=== PATIENT | male | born 1945 | race Hispanic/Latino ===

== ENCOUNTER 2017-04-21 02:03 | Emergency (ER) | payer MEDICARE ==
[2017-04-21] MEDS ORDERED: ONDANSETRON HCL 4 MG/2 ML VIAL ONE (02:16)
[2017-04-21 02:31] LABS: BASOPHILS % (AUTO) 0.9 % (0.0-5.0); HEMATOCRIT 35.4 % (42-54); LYMPHOCYTES % (AUTO) 9.7 % (21.0-51.0); MEAN CORPUSCULAR HEMOGLOBIN 26.4 pg (27.0-33.0); MEAN CORPUSCULAR HGB CONC 33.4 g/dL (32.0-36.0); MONOCYTES % (AUTO) 6.7 % (3.0-13.0); NEUTROPHILS % (AUTO) 79.7 % (40.0-77.0); PLATELET COUNT (AUTO) 240 K/uL (130-400); RED BLOOD CELL COUNT(AUTO) 4.48 MIL/uL (4.50-6.20); RED CELL DISTRIBUTION WIDTH 25.1 % (11.0-15.5)
[2017-04-21 02:55] LABS: CREATININE 0.8 mg/dL (0.5-1.5); POTASSIUM 3.2 mmol/L (3.5-5.1)
[2017-04-21 03:00] LABS: BILIRUBIN,TOTAL 0.3 mg/dL (0.2-1.0); TOTAL PROTEIN, SERUM 7.1 g/dL (6.0-8.3)
[2017-04-21 03:55] LABS: APPEARANCE,URINE Clear (CLEAR); BILIRUBIN,URINE Negative (NEGATIVE); COLOR,URINE Yellow (YELLOW); GLUCOSE, URINE (UA) >=1000 mg/dL (NEGATIVE); KETONES,URINE Trace mg/dL (NEGATIVE); LEUKOCYTE ESTERASE ,URINE Moderate (NEGATIVE); NITRATE,URINE Negative (NEGATIVE); OCCULT BLOOD,URINE Trace (NEGATIVE); PROTEIN,URINE Trace (NEGATIVE)
[2017-04-21 04:13] LABS: BACTERIA,URINE None Seen /HPF (None Seen); MUCUS,URINE Rare LPF (None Seen); RBC,URINE 0-1 /HPF (0-1); SQUAMOUS EPITHELIAL CELL,UR Few /LPF (0-2); YEAST,URINE BUDDING Few /HPF (None Seen)
[2017-04-21] MEDS ORDERED: CEFTRIAXONE SODIUM 1 GM ONE (05:01)
== END 2017-04-21 06:02 | disposition home or self-care (01) ==
LOC: EDH 02:03
DX: N39.0 Urinary tract infection, site not specified (principal); R11.2 Nausea with vomiting, unspecified; E11.65 Type 2 diabetes mellitus with hyperglycemia; Z86.73 Personal history of transient ischemic attack (TIA), and cerebral infarction without residual deficits
CPT/HCPCS: 36415; 80053; 81001; 83690; 84484 ×2; 85025; 93005; 96361; 96374; 96375; 99285; J0696; J2405

== ENCOUNTER 2017-06-09 10:35 | Inpatient (IN) | payer MEDICARE ==
[~2017-06-09] VITALS: Ht 175.3 cm; Wt 79.3 kg
[2017-06-09 11:06] LABS: BASOPHILS % (AUTO) 0.2 % (0.0-5.0); EOSINOPHILS % (AUTO) 0.2 % (0.0-8.0); HEMATOCRIT 38.1 % (42-54); MEAN CORPUSCULAR HEMOGLOBIN 27.2 pg (27.0-33.0); MEAN CORPUSCULAR VOLUME 79.9 fL (79-99); MONOCYTES % (AUTO) 3.2 % (3.0-13.0); NEUTROPHILS % (AUTO) 94.4 % (40.0-77.0); NUCLEATED RED BLOOD CELLS 0.1 % (0.0-0.19); PLATELET COUNT (AUTO) 387 K/uL (130-400); RED BLOOD CELL COUNT(AUTO) 4.77 MIL/uL (4.50-6.20); RED CELL DISTRIBUTION WIDTH 14.2 % (11.0-15.5); WHITE BLOOD COUNT (AUTO) 13.1 K/uL (4.8-10.8)
[2017-06-09 11:08] LABS: APPEARANCE,URINE Cloudy (CLEAR); BILIRUBIN,URINE Negative (NEGATIVE); COLOR,URINE Yellow (YELLOW); GLUCOSE, URINE (UA) >=1000 mg/dL (NEGATIVE); KETONES,URINE Negative (NEGATIVE); LEUKOCYTE ESTERASE ,URINE Moderate (NEGATIVE); NITRATE,URINE Positive (NEGATIVE); OCCULT BLOOD,URINE Small (NEGATIVE); PROTEIN,URINE Trace (NEGATIVE)
[2017-06-09] MEDS ORDERED: ACETAMINOPHEN 325 MG TAB ONE ×2 (11:11→15:30)
[2017-06-09] MEDS ORDERED: SODIUM CHLORIDE 0.9% 1000ML 1,000 ML IV ONE (11:11)
[2017-06-09 11:38] LABS: BACTERIA,URINE Many /HPF (None Seen); RBC,URINE 0-1 /HPF (0-1); SQUAMOUS EPITHELIAL CELL,UR Rare /LPF (0-2); WBC,URINE 51-100 /HPF (0-1)
[2017-06-09 11:46] LABS: POTASSIUM 4.5 mmol/L (3.5-5.1)
[2017-06-09 11:51] LABS: ALBUMIN 2.5 g/dL (3.5-5.0); BILIRUBIN,TOTAL 0.5 mg/dL (0.2-1.0); TOTAL PROTEIN, SERUM 8.2 g/dL (6.0-8.3)
[2017-06-09] MEDS ORDERED: CEFTRIAXONE SODIUM 1 GM ONE (12:57)
[2017-06-09] MEDS ORDERED: MEROPENEM 1 GM VIAL ONE (15:30)
[2017-06-09] MEDS ORDERED: INSULIN HUMULIN R 100 UNIT/ML 3ML ONE (17:36)
[2017-06-09] MEDS ORDERED: MEROPENEM 1 GM VIAL IVP SCH (18:00)
[2017-06-09] MEDS ORDERED: SODIUM CHLORIDE 0.9% 10 ML VIAL IVP PRN (18:00)
[2017-06-09 20:00] VITALS: BP_SYST 83; BP_SYST 93; BP_DIAS 43
[2017-06-09] MEDS: SODIUM CHLORIDE 0.9% 1000ML 1,000 ML IV SCH ×2 (20:00→22:35)
[2017-06-09] MEDS: INSULIN R PO SS1 SQ SCH (21:00)
[2017-06-09 21:25] VITALS: BP 96/49
[2017-06-09] MEDS: ACETAMINOPHEN 325 MG TAB PO PRN (22:34)
[2017-06-10] VITALS (8 sets, daily range): BP systolic 90–134; BP diastolic 51–97
[2017-06-10] MEDS: MEROPENEM 1 GM VIAL IVP SCH ×4 (01:20→23:44)
[2017-06-10] MEDS: ACETAMINOPHEN 325 MG TAB PO PRN (02:56)
[2017-06-10] MEDS ORDERED: ONDANSETRON HCL 4 MG/2 ML VIAL IVP PRN (03:30)
[2017-06-10 05:35] LABS: HEMATOCRIT 34.4 % (42-54); MEAN CORPUSCULAR HEMOGLOBIN 26.6 pg (27.0-33.0); MEAN CORPUSCULAR HGB CONC 33.1 g/dL (32.0-36.0); MEAN CORPUSCULAR VOLUME 80.6 fL (79-99); PLATELET COUNT (AUTO) 307 K/uL (130-400); RED BLOOD CELL COUNT(AUTO) 4.27 MIL/uL (4.50-6.20); RED CELL DISTRIBUTION WIDTH 14.7 % (11.0-15.5); WHITE BLOOD COUNT (AUTO) 21.3 K/uL (4.8-10.8)
[2017-06-10 05:42] LABS: CREATININE 1.2 mg/dL (0.5-1.5); POTASSIUM 4.1 mmol/L (3.5-5.1)
[2017-06-10] MEDS: INSULIN R PO SS1 SQ SCH ×4 (07:02→21:09)
[2017-06-10] MEDS: SODIUM CHLORIDE 0.9% 1000ML 1,000 ML IV SCH (16:48)
[2017-06-11 03:35] VITALS: BP 127/64
[2017-06-11 05:36] LABS: BASOPHILS % (AUTO) 0.6 % (0.0-5.0); EOSINOPHILS % (AUTO) 1.3 % (0.0-8.0); HEMATOCRIT 31.5 % (42-54); LYMPHOCYTES % (AUTO) 8.1 % (21.0-51.0); MEAN CORPUSCULAR HEMOGLOBIN 27.6 pg (27.0-33.0); MEAN CORPUSCULAR HGB CONC 34.4 g/dL (32.0-36.0); MEAN CORPUSCULAR VOLUME 80.1 fL (79-99); PLATELET COUNT (AUTO) 250 K/uL (130-400); RED BLOOD CELL COUNT(AUTO) 3.94 MIL/uL (4.50-6.20); RED CELL DISTRIBUTION WIDTH 14.3 % (11.0-15.5); WHITE BLOOD COUNT (AUTO) 11.3 K/uL (4.8-10.8)
[2017-06-11 05:51] LABS: CREATININE 0.9 mg/dL (0.5-1.5); POTASSIUM 3.6 mmol/L (3.5-5.1)
[2017-06-11] MEDS: INSULIN R PO SS1 SQ SCH ×4 (06:56→21:18)
[2017-06-11 08:02] VITALS: BP 120/60
[2017-06-11] MEDS: MEROPENEM 1 GM VIAL IVP SCH ×2 (10:17→17:54)
[2017-06-11] MEDS: SODIUM CHLORIDE 0.9% 1000ML 1,000 ML IV SCH ×2 (10:18→11:38)
[2017-06-11 11:53] VITALS: BP 120/60
[2017-06-11 15:41] VITALS: BP 142/65
[2017-06-11 19:10] VITALS: BP 144/59
[2017-06-12] VITALS (7 sets, daily range): BP systolic 121–141; BP diastolic 56–76
[2017-06-12] MEDS: MEROPENEM 1 GM VIAL IVP SCH ×3 (00:06→16:54)
[2017-06-12] MEDS: INSULIN R PO SS1 SQ SCH ×4 (06:41→22:37)
[2017-06-12] MEDS: SODIUM CHLORIDE 0.9% 1000ML 1,000 ML IV SCH ×2 (08:00→17:42)
[2017-06-12] MEDS: CADEXOMER IODINE 40 GM GEL TP SCH (09:48)
[2017-06-12] MEDS: ZINC OXIDE OINT 60GM TUBE TP SCH (09:48)
[2017-06-12] MEDS: SULFAMETHOX-TMP DS 800/160 TAB PO SCH (22:12)
[2017-06-13] MEDS: MEROPENEM 1 GM VIAL IVP SCH ×3 (02:01→16:56)
[2017-06-13 03:05] VITALS: BP 129/60
[2017-06-13] MEDS: INSULIN R PO SS1 SQ SCH ×4 (06:53→21:58)
[2017-06-13 07:00] VITALS: BP 132/62
[2017-06-13] MEDS: ZINC OXIDE OINT 60GM TUBE TP SCH (08:56)
[2017-06-13] MEDS: SULFAMETHOX-TMP DS 800/160 TAB PO SCH ×2 (08:56→21:54)
[2017-06-13] MEDS: CADEXOMER IODINE 40 GM GEL TP SCH (08:56)
[2017-06-13] MEDS: SODIUM CHLORIDE 0.9% 1000ML 1,000 ML IV SCH (08:58)
[2017-06-13 11:00] VITALS: BP 140/68
[2017-06-13 16:00] VITALS: BP 112/51
[2017-06-13] MEDS ORDERED: INSLAN SQ (16:06)
[2017-06-13] MEDS ORDERED: SULF1TAB42 PO (18:41)
[2017-06-13 20:00] VITALS: BP 128/62
== END 2017-06-13 21:50 | DRG 872 ==
LOC: EDH 10:35 → EDHIP 13:00 → 4CH 20:43
PROVIDERS: ADMIT Family Medicine; ATTEND Family Medicine
DX: A41.9 Sepsis, unspecified organism (principal); E44.0 Moderate protein-calorie malnutrition; E11.51 Type 2 diabetes mellitus with diabetic peripheral angiopathy without gangrene; I69.354 Hemiplegia and hemiparesis following cerebral infarction affecting left non-dominant side; N39.0 Urinary tract infection, site not specified; E78.5 Hyperlipidemia, unspecified; I10 Essential (primary) hypertension; Z60.2 Problems related to living alone; Z99.3 Dependence on wheelchair; Z79.4 Long term (current) use of insulin
CPT/HCPCS: 36415; 71045; 80048; 80053; 81001; 82948; 83605; 85025; 85027; 87040; 87088; 87186; 87804; A4218; J0696; J1815; J2185; J7030

== ENCOUNTER 2018-02-07 11:07 | Inpatient (IN) | payer MEDICARE ==
[~2018-02-07] VITALS: Ht 170.2 cm; Wt 94.3 kg
[~2018-02-07 11:07] MED LIST: INSLAN SQ; SULF1TAB42 PO
[2018-02-07] MEDS ORDERED: SODIUM CHLORIDE 0.9% 1000ML 1,000 ML IV ONE (11:28)
[2018-02-07] MEDS ORDERED: ONDANSETRON HCL 4 MG/2 ML VIAL ONE (11:28)
[2018-02-07 11:40] LABS: BASOPHILS % (AUTO) 0.8 % (0.0-5.0); EOSINOPHILS % (AUTO) 2.9 % (0.0-8.0); HEMATOCRIT 33.8 % (42-54); LYMPHOCYTES % (AUTO) 17.2 % (21.0-51.0); MEAN CORPUSCULAR HEMOGLOBIN 24.1 pg (27.0-33.0); MEAN CORPUSCULAR HGB CONC 31.9 g/dL (32.0-36.0); MEAN CORPUSCULAR VOLUME 75.5 fL (79-99); MONOCYTES % (AUTO) 6.5 % (3.0-13.0); NEUTROPHILS % (AUTO) 72.6 % (40.0-77.0); PLATELET COUNT (AUTO) 264 K/uL (130-400); RED BLOOD CELL COUNT(AUTO) 4.47 MIL/uL (4.50-6.20); RED CELL DISTRIBUTION WIDTH 16.2 % (11.0-15.5); WHITE BLOOD COUNT (AUTO) 8.4 K/uL (4.8-10.8)
[2018-02-07 12:00] LABS: INR 0.93 (0.85-1.15); PARTIAL THROMBOPLASTIN TIME 29.5 SEC (26.3-35.5); PROTHROMBIN TIME 9.8 SEC (9.6-11.6)
[2018-02-07 13:04] LABS: CREATININE 0.8 mg/dL (0.5-1.5)
[2018-02-07 13:08] LABS: BILIRUBIN,DIRECT 0.1 mg/dL (0.0-0.3); BILIRUBIN,TOTAL 0.2 mg/dL (0.2-1.0); TOTAL PROTEIN, SERUM 7.7 g/dL (6.0-8.3)
[2018-02-07 15:23] LABS: BASOPHILS % (AUTO) 0.5 % (0.0-5.0); EOSINOPHILS % (AUTO) 0.8 % (0.0-8.0); HEMATOCRIT 28.1 % (42-54); LYMPHOCYTES % (AUTO) 12.9 % (21.0-51.0); MEAN CORPUSCULAR HEMOGLOBIN 24.3 pg (27.0-33.0); MEAN CORPUSCULAR HGB CONC 31.9 g/dL (32.0-36.0); MEAN CORPUSCULAR VOLUME 76.3 fL (79-99); MONOCYTES % (AUTO) 4.2 % (3.0-13.0); NEUTROPHILS % (AUTO) 81.6 % (40.0-77.0); PLATELET COUNT (AUTO) 218 K/uL (130-400); RED BLOOD CELL COUNT(AUTO) 3.69 MIL/uL (4.50-6.20); RED CELL DISTRIBUTION WIDTH 16.6 % (11.0-15.5); WHITE BLOOD COUNT (AUTO) 7.2 K/uL (4.8-10.8)
[2018-02-07 18:17] LABS: HEMATOCRIT 32.7 % (42-54)
[2018-02-07 19:20] VITALS: BP 142/60
[2018-02-07] MEDS ORDERED: GLUCAGON 1MG KIT 1 MG ML IM PRN (20:00)
[2018-02-07] MEDS ORDERED: DEXTROSE 50%-WATER 50 ML DISP.SYRIN IV PRN (20:00)
[2018-02-07] MEDS: SODIUM CHLORIDE 0.9% 1000ML 1,000 ML IV SCH (21:13)
[2018-02-07] MEDS: PANTOPRAZOLE 40 MG/VIAL IVP SCH (21:13)
[2018-02-07] MEDS: INSULIN HUMULIN R 100 UNIT/ML 3ML SQ SCH (21:40)
[2018-02-08] VITALS (17 sets, daily range): BP systolic 109–152; BP diastolic 46–88
[2018-02-08 04:48] LABS: HEMATOCRIT 30.6 % (42-54); MEAN CORPUSCULAR HEMOGLOBIN 24.5 pg (27.0-33.0); MEAN CORPUSCULAR HGB CONC 32.2 g/dL (32.0-36.0); PLATELET COUNT (AUTO) 294 K/uL (130-400); RED BLOOD CELL COUNT(AUTO) 4.03 MIL/uL (4.50-6.20); RED CELL DISTRIBUTION WIDTH 16.6 % (11.0-15.5)
[2018-02-08 05:08] LABS: CREATININE 0.9 mg/dL (0.5-1.5); POTASSIUM 4.1 mmol/L (3.5-5.1)
[2018-02-08] MEDS: SODIUM CHLORIDE 0.9% 1000ML 1,000 ML IV SCH ×2 (06:00→16:00)
[2018-02-08] MEDS: INSULIN HUMULIN R 100 UNIT/ML 3ML SQ SCH ×4 (07:00→21:00)
[2018-02-08] MEDS ORDERED: LIDOCAINE HCL 1% 20 ML VIAL ONE (07:42)
[2018-02-08] MEDS ORDERED: PROPOFOL 10 MG/ML 20ML VIAL IV ONE ×2 (07:42→08:14)
[2018-02-08] MEDS ORDERED: EPINEPHRINE 1 MG/ML AMPULE ONE (08:08)
[2018-02-08] MEDS ORDERED: PHENYLEPHRINE HCL 10 MG/ML 1ML VIAL IV ONE (08:21)
[2018-02-08] MEDS: PANTOPRAZOLE 40 MG/VIAL IVP SCH ×2 (10:28→20:59)
[2018-02-08 16:25] LABS: HEMATOCRIT 30.8 % (42-54)
[2018-02-08] MEDS ORDERED: ACET-2900 PO (19:41)
[2018-02-08] MEDS ORDERED: [UNRECOGNIZED DRUG - OTHER] TP (19:41)
[2018-02-08] MEDS ORDERED: LACT10SO9 PO (19:41)
[2018-02-08] MEDS ORDERED: LACTULOSE 20 GM/30 ML UDCUP PO PRN (19:45)
[2018-02-08] MEDS ORDERED: ACETAMINOPHEN EXTENDED RELEASE 650 MG TABLET PO PRN (19:45)
[2018-02-09] MEDS: SODIUM CHLORIDE 0.9% 1000ML 1,000 ML IV SCH (02:00)
[2018-02-09 03:50] VITALS: BP 101/39
[2018-02-09] MEDS: INSULIN HUMULIN R 100 UNIT/ML 3ML SQ SCH ×3 (06:23→17:23)
[2018-02-09 07:57] VITALS: BP 107/70
[2018-02-09] MEDS ORDERED: [UNRECOGNIZED DRUG - OTHER] TP SCH (09:00)
[2018-02-09] MEDS: PANTOPRAZOLE 40 MG/VIAL IVP SCH (09:00)
[2018-02-09 11:31] VITALS: BP 112/72
[2018-02-09 16:00] VITALS: BP 122/74
== END 2018-02-09 17:58 | DRG 393 ==
LOC: EDH 11:07 → EDHIP 15:35 → 4BH 18:25
PROVIDERS: ADMIT Family Medicine; ATTEND Family Medicine
PROC: 0DB68ZZ Excision of Stomach, Via Natural or Artificial Opening Endoscopic (ICD-10-PCS; principal; 2018-02-08)
PROC: 3E0G8GC Introduction of Other Therapeutic Substance into Upper GI, Via Natural or Artificial Opening Endoscopic (ICD-10-PCS; 2018-02-08)
PROC: 0W3P8ZZ Control Bleeding in Gastrointestinal Tract, Via Natural or Artificial Opening Endoscopic (ICD-10-PCS; 2018-02-08)
PROC: 0DB68ZX Excision of Stomach, Via Natural or Artificial Opening Endoscopic, Diagnostic (ICD-10-PCS; 2018-02-08)
DX: K31.7 Polyp of stomach and duodenum (principal); K25.4 Chronic or unspecified gastric ulcer with hemorrhage; I69.354 Hemiplegia and hemiparesis following cerebral infarction affecting left non-dominant side; I10 Essential (primary) hypertension; E78.5 Hyperlipidemia, unspecified; E11.51 Type 2 diabetes mellitus with diabetic peripheral angiopathy without gangrene; N28.9 Disorder of kidney and ureter, unspecified; E11.621 Type 2 diabetes mellitus with foot ulcer; L97.509 Non-pressure chronic ulcer of other part of unspecified foot with unspecified severity; K44.9 Diaphragmatic hernia without obstruction or gangrene
CPT/HCPCS: 36415; 43235; 43239; 80048; 80076; 82270; 82550; 82948; 83690; 84484; 85014; 85018; 85025; 85027; 85610; 85730; 86850; 86900; 86901; 88305; 93005; C9113; J0171; J1815; J2370; J2405; J2704; J7030

== ENCOUNTER 2018-07-30 11:46 | Inpatient (IN) | payer MEDICARE ==
[~2018-07-30] VITALS: Ht 172.7 cm; Wt 95.8 kg
[~2018-07-30 11:46] MED LIST changes: +ACET-2900 PO; -INSLAN SQ; +LACT10SO9 PO; -SULF1TAB42 PO; +[UNRECOGNIZED DRUG - OTHER] TP
[2018-07-30 13:31] LABS: BASOPHILS % (AUTO) 0.6 % (0.0-5.0); EOSINOPHILS % (AUTO) 3.3 % (0.0-8.0); HEMATOCRIT 34.4 % (42-54); LYMPHOCYTES % (AUTO) 13.8 % (21.0-51.0); MEAN CORPUSCULAR HEMOGLOBIN 24.9 pg (27.0-33.0); MEAN CORPUSCULAR HGB CONC 32.6 g/dL (32.0-36.0); MEAN CORPUSCULAR VOLUME 76.4 fL (79-99); MONOCYTES % (AUTO) 8.7 % (3.0-13.0); NEUTROPHILS % (AUTO) 73.6 % (40.0-77.0); PLATELET COUNT (AUTO) 311 K/uL (130-400); WHITE BLOOD COUNT (AUTO) 8.8 K/uL (4.8-10.8)
[2018-07-30 13:36] LABS: POTASSIUM 3.8 mmol/L (3.5-5.1)
[2018-07-30 13:40] LABS: ALBUMIN 2.8 g/dL (3.5-5.0); BILIRUBIN,TOTAL 0.5 mg/dL (0.2-1.0); TOTAL PROTEIN, SERUM 8.1 g/dL (6.0-8.3)
[2018-07-30 13:44] LABS: INR 0.95 (0.85-1.15); PARTIAL THROMBOPLASTIN TIME 34.4 SEC (26.3-35.5)
[2018-07-30] MEDS ORDERED: ONDANSETRON HCL 4 MG/2 ML VIAL IV PRN (16:30)
[2018-07-30] MEDS ORDERED: LACTULOSE 20 GM/30 ML UDCUP PO PRN (16:30)
[2018-07-30] MEDS ORDERED: VANCOMYCIN PROTOCOL PER PHARMACY IV PRN (16:30)
[2018-07-30] MEDS ORDERED: HYDRALAZINE HCL 20 MG/ML VIAL IV PRN (16:30)
[2018-07-30] MEDS ORDERED: ACETAMINOPHEN 325 MG TAB PO PRN ×2 (16:30)
[2018-07-30] MEDS ORDERED: VANCOMYCIN 1GM+NS 250ML 250 ML IV ONE (16:46)
[2018-07-30] MEDS ORDERED: VANCOMYCIN 1GM+NS 250ML 250 ML IV SCH (17:00)
[2018-07-30] MEDS: INSULIN LISPRO 100 UNIT/ML 3ML SQ SCH (17:00)
[2018-07-30 17:57] LABS: HEMOGLOBIN A1C 9.7 % (4.0-6.0)
[2018-07-30 18:12] VITALS: BP 129/78
[2018-07-30] MEDS ORDERED: COMPOUND IV REFRIGERATED 1 EACH IVSOLN MISC PRN (19:15)
[2018-07-30 20:00] VITALS: BP 125/76
[2018-07-30] MEDS: ZOSYN 3.375GM+NS 50ML 50 ML IV SCH ×2 (20:50→21:00)
[2018-07-30] MEDS: FAMOTIDINE/PF 20 MG/2 ML VIAL IV SCH (20:50)
[2018-07-30] MEDS: INSULIN GLARGINE 100 UNITS/ML 10 ML VIAL SQ SCH (20:52)
--- NOTE | 2018-07-30 21:30 | NUR ---
REFUSED IV INSERTION Pt. refused IV re-insertion x [address] Ames came in to visit and talk with the patient. Ordered PICC Line tan GRECO ( 07/31/18) Addendum: 07/31/18 at 0602 by MARIE RODRIGUEZ RN RN Addendum: Dr. Ames also said not to give any IV antibiotics at this time until PICC line was done.
[2018-07-31 00:04] VITALS: BP 153/87
[2018-07-31 04:23] VITALS: BP 106/64
[2018-07-31 04:48] LABS: HEMATOCRIT 29.6 % (42-54); MEAN CORPUSCULAR HEMOGLOBIN 24.8 pg (27.0-33.0); MEAN CORPUSCULAR HGB CONC 32.7 g/dL (32.0-36.0); MEAN CORPUSCULAR VOLUME 75.9 fL (79-99); PLATELET COUNT (AUTO) 284 K/uL (130-400); RED CELL DISTRIBUTION WIDTH 16.1 % (11.0-15.5); WHITE BLOOD COUNT (AUTO) 5.8 K/uL (4.8-10.8)
[2018-07-31] MEDS: ZOSYN 3.375GM+NS 50ML 50 ML IV SCH ×3 (05:00→22:48)
[2018-07-31 05:01] LABS: INR 0.99 (0.85-1.15); PARTIAL THROMBOPLASTIN TIME 33.2 SEC (26.3-35.5); PROTHROMBIN TIME 10.4 SEC (9.6-11.6)
[2018-07-31 05:05] LABS: CRP QUANTITATIVE 79.5 mg/L (0.00-9.0); MAGNESIUM 1.9 mg/dL (1.80-2.40); PHOSPHORUS 3.3 mg/dL (2.5-4.9); POTASSIUM 3.8 mmol/L (3.5-5.1)
[2018-07-31 05:57] LABS: ERYTHROCYTE SEDIMENTATION RATE 117 MM/HR (0-20)
[2018-07-31] MEDS: INSULIN LISPRO 100 UNIT/ML 3ML SQ SCH ×4 (06:37→17:17)
[2018-07-31] MEDS: VANCOMYCIN 1.5 GM in SODIUM CHLORIDE 0.9% 250 ML IV SCH ×2 (08:00→22:49)
[2018-07-31] MEDS ORDERED: INSU100V12 SQ (08:50)
[2018-07-31] MEDS ORDERED: FAMO20TA8 PO (08:50)
[2018-07-31] MEDS ORDERED: COLL30OI TP (08:50)
[2018-07-31] MEDS: ENOXAPARIN SODIUM 40 MG/0.4 ML SYRINGE SQ SCH (09:00)
[2018-07-31] MEDS: FAMOTIDINE/PF 20 MG/2 ML VIAL IV SCH ×2 (09:00→23:03)
[2018-07-31] MEDS ORDERED: LACTULOSE 20 GM/30 ML UDCUP PO PRN (10:45)
[2018-07-31] MEDS: INSULIN HUMULIN R 100 UNIT/ML 3ML SQ SCH ×3 (11:30→23:04)
--- NOTE | 2018-07-31 11:44 | NUR ---
[facility] consult Patient assessed as ordered. Patient has necrotic toe to left foot, edema, serosanguinous drainage and foul odor to left foot. Wet to dry drsg in place until consult by Dr. Berger. No [facility] recommendations required at this time. Addendum: 07/31/18 at 1147 by CROW SPRAGUE RN/DANTE Amended: Links added.
[2018-07-31] MEDS: HONEY 1 APPL/ML TUBE TP SCH (12:33)
--- NOTE | 2018-07-31 14:13 | NUR ---
[facility] CM met with currently unable to answer questions appropriately, called daughter on facesheet, spoke to Di Posadas . Pt is assist with ADL's, from [facility] prior to admission. Denies any equipments/services. DCP back to [facility], telephone consent VICENTE signed. Confirmed w/Lee Ann, pt is currently at [facility] and will return on dc, need new pasrr. DC plan to [facility]. CM to cont to follow up. Addendum: 07/31/18 at 1416 by PAULA MILLS LVN CM Amended: Links added.
--- NOTE | 2018-07-31 14:58 | NUR ---
CM Note: [facility] reacceptance CM faxed clinicals and pasrr, spoke to Lee Ann avila clinicals and pasrr. Pt has reacceptance, aware pending left 2nd toe amp w/Dr Berger today. EMS filled out flagged in chart, pending to be faxed w/current date, primary nurse to call [facility] once pt ready to DC. Primary nurse aware. CM to cont to follow up.
[2018-07-31 16:05] VITALS: BP 158/62
[2018-07-31 19:15] VITALS: BP 138/51
[2018-07-31] MEDS: INSULIN GLARGINE 100 UNITS/ML 10 ML VIAL SQ SCH ×2 (21:00→23:05)
[2018-07-31 23:28] VITALS: BP 109/55
[2018-08-01] VITALS (19 sets, daily range): BP systolic 101–136; BP diastolic 44–67
[2018-08-01] MEDS: ZOSYN 3.375GM+NS 50ML 50 ML IV SCH ×3 (04:50→20:31)
[2018-08-01 05:20] LABS: BASOPHILS % (AUTO) 0.8 % (0.0-5.0); EOSINOPHILS % (AUTO) 3.6 % (0.0-8.0); HEMATOCRIT 30.3 % (42-54); LYMPHOCYTES % (AUTO) 5.6 % (21.0-51.0); MEAN CORPUSCULAR HEMOGLOBIN 24.6 pg (27.0-33.0); MEAN CORPUSCULAR HGB CONC 32.5 g/dL (32.0-36.0); MEAN CORPUSCULAR VOLUME 75.8 fL (79-99); MONOCYTES % (AUTO) 8.2 % (3.0-13.0); NEUTROPHILS % (AUTO) 81.8 % (40.0-77.0); PLATELET COUNT (AUTO) 310 K/uL (130-400); WHITE BLOOD COUNT (AUTO) 6.6 K/uL (4.8-10.8)
[2018-08-01 05:30] LABS: CREATININE 0.9 mg/dL (0.5-1.5); POTASSIUM 3.5 mmol/L (3.5-5.1)
[2018-08-01] MEDS: INSULIN HUMULIN R 100 UNIT/ML 3ML SQ SCH ×4 (06:18→20:32)
[2018-08-01] MEDS: INSULIN LISPRO 100 UNIT/ML 3ML SQ SCH ×3 (07:30→16:46)
[2018-08-01] MEDS: VANCOMYCIN 1.5 GM in SODIUM CHLORIDE 0.9% 250 ML IV SCH ×2 (08:00→20:30)
--- NOTE | 2018-08-01 08:29 | NUR ---
Sanjay at bedside with Dr. Grace. Pt is awake alert and oriented. pt was explained in full detail of the need for amputation of left foot toe due to osteomyelitis. pt agrees with dr and witnessed at bedside verbal agreement. pt signed consent and states he has no family and is able to make his own decision. pt initials consent form and signature, though handwriting is unclear, pt verbalizes in full detail what is going to be done and states he wants the "small infected toe gone"
[2018-08-01] MEDS: HONEY 1 APPL/ML TUBE TP SCH (09:00)
[2018-08-01] MEDS: FAMOTIDINE/PF 20 MG/2 ML VIAL IV SCH ×2 (09:00→20:31)
[2018-08-01] MEDS: ENOXAPARIN SODIUM 40 MG/0.4 ML SYRINGE SQ SCH (09:00)
[2018-08-01] MEDS ORDERED: LIDOCAINE HCL 1% 20 ML VIAL ONE (11:11)
[2018-08-01] MEDS ORDERED: BUPIVACAINE/PF 0.5% 30ML VIAL ONE (11:11)
[2018-08-01] MEDS ORDERED: MIDAZOLAM HCL 1 MG/ML 2ML VIAL ONE (11:26)
--- NOTE | 2018-08-01 13:09 | NUR ---
post op pt arrived back to room. bedside report initiated. pt is a/a/o x3. pt denies any pain and is verbalizing post op vital understanding. pt with wound vac continuous @125. continue to monitor for pain and/or bleed
[2018-08-01] MEDS: INSULIN GLARGINE 100 UNITS/ML 10 ML VIAL SQ SCH ×2 (20:35→21:00)
[2018-08-02] VITALS (7 sets, daily range): BP systolic 113–146; BP diastolic 40–76
[2018-08-02] MEDS: ZOSYN 3.375GM+NS 50ML 50 ML IV SCH ×3 (05:23→22:05)
[2018-08-02] MEDS: INSULIN HUMULIN R 100 UNIT/ML 3ML SQ SCH ×4 (05:49→22:06)
[2018-08-02 05:52] LABS: BASOPHILS % (AUTO) 1.3 % (0.0-5.0); EOSINOPHILS % (AUTO) 4.8 % (0.0-8.0); HEMATOCRIT 30.1 % (42-54); LYMPHOCYTES % (AUTO) 8.3 % (21.0-51.0); MEAN CORPUSCULAR HEMOGLOBIN 25.2 pg (27.0-33.0); MEAN CORPUSCULAR HGB CONC 32.9 g/dL (32.0-36.0); MEAN CORPUSCULAR VOLUME 76.7 fL (79-99); MONOCYTES % (AUTO) 9.3 % (3.0-13.0); NEUTROPHILS % (AUTO) 76.3 % (40.0-77.0); PLATELET COUNT (AUTO) 295 K/uL (130-400); RED BLOOD CELL COUNT(AUTO) 3.92 MIL/uL (4.50-6.20); RED CELL DISTRIBUTION WIDTH 16.1 % (11.0-15.5)
[2018-08-02 06:05] LABS: POTASSIUM 3.7 mmol/L (3.5-5.1)
[2018-08-02] MEDS: INSULIN LISPRO 100 UNIT/ML 3ML SQ SCH ×3 (08:08→16:57)
[2018-08-02] MEDS: FAMOTIDINE/PF 20 MG/2 ML VIAL IV SCH ×2 (08:30→22:05)
[2018-08-02] MEDS: VANCOMYCIN 1.5 GM in SODIUM CHLORIDE 0.9% 250 ML IV SCH ×2 (08:30→22:05)
[2018-08-02] MEDS: ENOXAPARIN SODIUM 40 MG/0.4 ML SYRINGE SQ SCH (08:35)
--- NOTE | 2018-08-02 18:47 | NUR ---
D/C PLAN F/U CM attempted to call dtr roger Sevilla to discuss d/c plan changes to [facility]. No answer, unable to leave message. CM to f/u Addendum: 08/02/18 at 1848 by ABILIO FAJARDO CM Amended: Links added.
[2018-08-02] MEDS: INSULIN GLARGINE 100 UNITS/ML 10 ML VIAL SQ SCH (22:07)
[2018-08-03 03:10] VITALS: BP 118/56
[2018-08-03] MEDS: ZOSYN 3.375GM+NS 50ML 50 ML IV SCH ×3 (04:55→21:55)
[2018-08-03] MEDS: INSULIN HUMULIN R 100 UNIT/ML 3ML SQ SCH ×4 (05:46→21:00)
[2018-08-03] MEDS: INSULIN LISPRO 100 UNIT/ML 3ML SQ SCH ×3 (06:46→18:10)
[2018-08-03 07:00] VITALS: BP 116/67
[2018-08-03] MEDS: VANCOMYCIN 1.5 GM in SODIUM CHLORIDE 0.9% 250 ML IV SCH ×2 (08:00→21:55)
[2018-08-03] MEDS ORDERED: PHARMACY COMMUNICATION MISC SCH (09:00)
[2018-08-03 11:00] VITALS: BP 129/63
[2018-08-03] MEDS: ENOXAPARIN SODIUM 40 MG/0.4 ML SYRINGE SQ SCH (11:10)
[2018-08-03] MEDS: FAMOTIDINE/PF 20 MG/2 ML VIAL IV SCH ×2 (11:10→21:56)
--- NOTE | 2018-08-03 12:54 | NUR ---
HOLD 8 AM DOSE VANCO TROUGH PRIOR TO THE NEXT DOSE PER DONTAE MILLARD
--- NOTE | 2018-08-03 15:49 | NUR ---
CM Note: [facility] pending acceptance Spoke to Leora w/[facility], receive order and clinicals, will come eval pt. Pt pending acceptance. MOT semi-filled pending ot be completed. EMS filled out, pending to be faxed w/current date, primary nurse to call [facility] once pt ready to DC. Primary nurse aware. CM to cont to follow up.
[2018-08-03 16:00] VITALS: BP 168/77
--- NOTE | 2018-08-03 17:33 | NUR ---
wound care done at this time. measurements of the wound length 8 cm and width 5 cm. 0at Addendum: 08/03/18 at 1735 by MAYA WASHBURN RN RN wound vac dressing changed and patient tolerated the procedure well.
[2018-08-03 19:08] VITALS: BP 125/74
[2018-08-03] MEDS: INSULIN GLARGINE 100 UNITS/ML 10 ML VIAL SQ SCH (21:52)
[2018-08-04 00:10] VITALS: BP 123/59
[2018-08-04 04:15] VITALS: BP 118/64
[2018-08-04 04:35] LABS: HEMATOCRIT 28.9 % (42-54); MEAN CORPUSCULAR HEMOGLOBIN 25.2 pg (27.0-33.0); MEAN CORPUSCULAR HGB CONC 33.3 g/dL (32.0-36.0); MEAN CORPUSCULAR VOLUME 75.6 fL (79-99); PLATELET COUNT (AUTO) 275 K/uL (130-400); RED BLOOD CELL COUNT(AUTO) 3.82 MIL/uL (4.50-6.20); RED CELL DISTRIBUTION WIDTH 16.1 % (11.0-15.5); WHITE BLOOD COUNT (AUTO) 5.6 K/uL (4.8-10.8)
[2018-08-04 04:47] LABS: CREATININE 0.9 mg/dL (0.5-1.5); POTASSIUM 3.4 mmol/L (3.5-5.1)
[2018-08-04] MEDS: INSULIN HUMULIN R 100 UNIT/ML 3ML SQ SCH ×3 (06:18→16:30)
[2018-08-04] MEDS: ZOSYN 3.375GM+NS 50ML 50 ML IV SCH ×2 (06:27→13:00)
[2018-08-04] MEDS: INSULIN LISPRO 100 UNIT/ML 3ML SQ SCH ×3 (06:36→17:00)
[2018-08-04 07:00] VITALS: BP 118/62
[2018-08-04] MEDS ORDERED: FAMOTIDINE 20MG TAB 20 MG TAB PO SCH (09:00)
[2018-08-04] MEDS ORDERED: POTASSIUM CHLORIDE 20 MEQ ERTAB PO SCH (10:15)
[2018-08-04 11:00] VITALS: BP 138/63
[2018-08-04] MEDS: VANCOMYCIN 1.5 GM in SODIUM CHLORIDE 0.9% 250 ML IV SCH (11:06)
[2018-08-04] MEDS: ENOXAPARIN SODIUM 40 MG/0.4 ML SYRINGE SQ SCH (11:10)
--- NOTE | 2018-08-04 13:31 | NUR ---
DCP CM spoke to [facility], pt had acceptance. MOT filled out pending MD to sign, EMS arranged and faxed, pending primary nurse to call [facility] once pt ready to DC. Primary nurse aware. CM to cont to follow up.
[2018-08-04 16:00] VITALS: BP 151/77
--- NOTE | 2018-08-04 19:30 | NUR ---
WAITING FOR TRANSPORTATION EMS CALLED,WAITING FOR EMS TO TRANSFER PT TO [facility]. WOUND VAC PUMP WAS DISCONNECTED AT 1830 FROM PREVIOUS NURSE. RECONNECTED PUMP AT 1930 UNTIL EMS ARRIVES.
[2018-08-04 20:00] VITALS: BP 154/75
--- NOTE | 2018-08-04 21:27 | NUR ---
EMS CALLED EMS TO FOLLOW UP TRANSPORT AND BENDING MACHINE SET UP OPERATOR WAS INFORMED THAT NOBODY HAD CALLED FOR EMS ON PT. PT WAS THEN PLACED ON THE LIST FOR TRANSPORT TO [facility]. NO DEFINITE TIME GIVEN FOR RECORD CENTER COORDINATOR OF PT.
--- NOTE | 2018-08-04 21:51 | NUR ---
D/C EMS IN TO TAKE PT TO [facility]. DISCONNECTED WOUND VAC TUBING FROM VAC, CLAMMED AND FIXED PT IN BED. PERSONAL BELONGINGS PLACED IN PLASTIC BAGS. D/C PT WITH EMS STAFF. PERSONAL WHEEL CHAIR SENT WITH PT.
== END 2018-08-04 21:55 | DRG 854 ==
LOC: EDH 11:46 → EDHIP 16:17 → 3BH 17:53
PROVIDERS: ADMIT Internal Medicine; ATTEND Internal Medicine
PROC: 02HV33Z Insertion of Infusion Device into Superior Vena Cava, Percutaneous Approach (ICD-10-PCS; 2018-07-31)
PROC: 0KBW0ZZ Excision of Left Foot Muscle, Open Approach (ICD-10-PCS; principal; 2018-08-01 11:20)
PROC: 0Y6N0ZB Detachment at Left Foot, Partial 2nd Ray, Open Approach (ICD-10-PCS; 2018-08-01 11:20)
DX: A41.50 Gram-negative sepsis, unspecified (principal); I96 Gangrene, not elsewhere classified; E44.0 Moderate protein-calorie malnutrition; I69.354 Hemiplegia and hemiparesis following cerebral infarction affecting left non-dominant side; L03.116 Cellulitis of left lower limb; L02.612 Cutaneous abscess of left foot; E87.1 Hypo-osmolality and hyponatremia; M86.672 Other chronic osteomyelitis, left ankle and foot; E11.52 Type 2 diabetes mellitus with diabetic peripheral angiopathy with gangrene; L97.519 Non-pressure chronic ulcer of other part of right foot with unspecified severity; E11.621 Type 2 diabetes mellitus with foot ulcer; L97.529 Non-pressure chronic ulcer of other part of left foot with unspecified severity; E11.69 Type 2 diabetes mellitus with other specified complication; I10 Essential (primary) hypertension; D64.9 Anemia, unspecified; E66.9 Obesity, unspecified; E78.2 Mixed hyperlipidemia; Z79.4 Long term (current) use of insulin; Z83.3 Family history of diabetes mellitus; Z99.3 Dependence on wheelchair; M19.90 Unspecified osteoarthritis, unspecified site; Z89.432 Acquired absence of left foot; Z68.32 Body mass index [BMI] 32.0-32.9, adult
CPT/HCPCS: 36415; 71045; 73630; 73718; 80048; 80053; 80202; 82948; 83036; 83735; 84100; 85025; 85027; 85610; 85651; 85730; 86140; 87040; 87070; 87076; 87077; 87186; 87205; 93970; 97039; C1894; G0378; J1650; J1815; J2250; J2543; J3370; J3490; J7030

== ENCOUNTER 2019-03-09 16:56 | Emergency (ER) | payer MEDICARE ==
[~2019-03-09 16:56] MED LIST changes: -ACET-2900 PO; +ACET-3194 PO; +COLL30OI TP; +FAMO20TA8 PO; +INSU100V12 SQ; -[UNRECOGNIZED DRUG - OTHER] TP
[2019-03-09] MEDS ORDERED: ONDANSETRON HCL 4 MG/2 ML VIAL ONE (17:17)
[2019-03-09] MEDS ORDERED: SODIUM CHLORIDE 0.9% 1000ML 1,000 ML IV ONE (17:22)
[2019-03-09 18:39] LABS: BASOPHILS % (AUTO) 0.3 % (0.0-5.0); EOSINOPHILS % (AUTO) 0.8 % (0.0-8.0); HEMATOCRIT 33.1 % (42-54); LYMPHOCYTES % (AUTO) 1.2 % (21.0-51.0); MEAN CORPUSCULAR HEMOGLOBIN 27.1 pg (27.0-33.0); MEAN CORPUSCULAR HGB CONC 32.6 g/dL (32.0-36.0); MONOCYTES % (AUTO) 5.7 % (3.0-13.0); NEUTROPHILS % (AUTO) 91.3 % (40.0-77.0); PLATELET COUNT (AUTO) 231 K/uL (130-400); RED BLOOD CELL COUNT(AUTO) 3.99 MIL/uL (4.50-6.20); RED CELL DISTRIBUTION WIDTH 13.2 % (11.0-15.5); WHITE BLOOD COUNT (AUTO) 11.9 K/uL (4.8-10.8)
[2019-03-09 18:53] LABS: CREATININE 1.3 mg/dL (0.5-1.5); POTASSIUM 3.7 mmol/L (3.5-5.1)
[2019-03-09 18:58] LABS: BILIRUBIN,TOTAL 0.5 mg/dL (0.2-1.0); TOTAL PROTEIN, SERUM 7.4 g/dL (6.0-8.3)
== END 2019-03-09 22:20 | disposition home or self-care (01) ==
LOC: EDH 16:56
DX: N13.2 Hydronephrosis with renal and ureteral calculous obstruction (principal); R11.10 Vomiting, unspecified; E11.9 Type 2 diabetes mellitus without complications; I10 Essential (primary) hypertension; E78.5 Hyperlipidemia, unspecified; Z86.73 Personal history of transient ischemic attack (TIA), and cerebral infarction without residual deficits
CPT/HCPCS: 36415; 71045; 74176; 80053; 82150; 83690; 85025; 93005; 96361; 96374; 99285; J2405; J7030